=== PATIENT | female | born 2000 | race Caucasian/White ===

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

== ENCOUNTER 2021-03-19 19:53 | Emergency (ER) | payer OTHER ==
[~2021-03-19] VITALS: Ht 167.6 cm; Wt 52.3 kg
[2021-03-19 20:16] VITALS: TEMP 97.6
[2021-03-19 21:32] VITALS: BP 121/72; PULSE 71
== END 2021-03-19 21:32 | disposition home or self-care (01) ==
LOC: COL.ER 19:53
DX: M79.642 Pain in left hand (principal)

== ENCOUNTER 2021-08-26 13:55 | Emergency (ER) | payer OTHER ==
[~2021-08-26] VITALS: Ht 165.1 cm; Wt 50.0 kg
[2021-08-26 14:27] VITALS: BP 106/76; PULSE 87; TEMP 98.5
[2021-08-26] MEDS ORDERED: COMPLETE MULTI1 TAB PO (15:31)
== END 2021-08-26 16:51 | disposition home or self-care (01) ==
LOC: COL.ER 13:55
DX: M25.552 Pain in left hip (principal); V23.4XXA Motorcycle driver injured in collision with car, pick-up truck or van in traffic accident, initial encounter; Y93.55 Activity, bike riding